=== PATIENT | female | born 1985 | race African-American/Black ===

== ENCOUNTER 2023-08-06 19:35 | Emergency (ER) | payer OTHER, SELFPAY ==
[2023-08-06 19:45] VITALS: BP 141/88
[2023-08-06 20:36] LABS: Hematocrit 21.8 % (37.0-47.0); Hemoglobin 5.6 g/dL (12.0-16.0); Mean Corp Hgb Conc. 25.7 g/dL (33.0-37.0); Mean Corpuscular Hgb 16.3 pg (27.0-31.0); Mean Corpuscular Volume 63.6 fL (81.0-99.0); Mean Platelet Volume 9.5 fL (7.4-10.4); Platelet Count 458 10^3/uL (130-400); Red Blood Cell Count 3.43 10^6/uL (4.20-5.40); Red Cell Dist. Width 21.2 % (11.5-14.5); White Blood Cell Count 4.9 10^3/uL (4.8-10.8)
[2023-08-06 20:37] LABS: % Eosinophils 3.1 % (0-6); % Immature Granulocytes 0.2 % (0-0.5); % Lymphocytes 32.4 % (20.5-51.1); % Monocytes 7.6 % (1.7-9.3); % Neutrophils 55.7 % (42.2-75.2); Absolute Basophils 0.1 10^3/uL (0-0.2); Absolute Eosinophils 0.2 10^3/uL (0-0.7); Absolute Lymphocytes 1.6 10^3/uL (1.2-3.4); Absolute Monocytes 0.4 10^3/uL (0.1-0.6); Absolute Neutrophils 2.7 10^3/uL (1.4-6.5); Anisocytosis 1+; Hypochromasia 3+; Microcytosis 2+; Normal RBC Morphology No
[2023-08-06 20:47] LABS: ALT (SGPT) < 10 U/L (0-35); AST (SGOT) 14 U/L (14-36); Albumin 4.2 g/dl (3.5-5.0); Alkaline Phosphatase 49 U/L (38-126); Blood Urea Nitrogen 11 mg/dl (7-17); Calcium 8.7 mg/dl (8.4-10.2); Carbon Dioxide 20 mmol/L (22-30); Chloride 105 mmol/L (98-107); Glucose 94 mg/dl (70-99); Potassium 3.8 mmol/L (3.5-5.1); Sodium 137 mmol/L (135-145); Total Bilirubin 0.5 mg/dl (0.2-1.3); Total Protein 7.3 g/dl (6.3-8.2); eGFR > 60.00
[2023-08-06 20:59] LABS: HCG, Serum Qualitative Screen Negative
[2023-08-06 21:01] LABS: Lipase 63 U/L (23-300)
--- NOTE | 2023-08-06 21:28 | ED.GENMED ---
History of Present Illness
General
Chief Complaint: Abdominal Symptoms
Source: patient
Exam Limitations: none
Time Seen by Provider: 08/06/23 21:12
Travel History
Have you had any contact with someone who has COVID-19?: No
Do you have any symptoms of coronavirus? Fever > 100 degrees, chills, cough, shortness of breath, sore throat, loss of taste or smell, muscle aches, or headache?: No
History of Present Illness
History of Present Illness:
See MDM
Past History
Past History
ED Past Medical History: Other (Uterine fibroid)
ED Past Surgical History: None
Social History
Tobacco: Non-smoker
Alcohol: None
Phy Exam
Physical Exam
Physical Exam:
See MDM
Course
Orders/Labs/Results
Orders:
Orders
08/06/23 19:56
Type+Screen Urgent
Complete Blood Count/With Diff Urgent
Comprehensive Metabolic Panel Urgent
HCG, Serum Qualitative Screen Urgent
Comment: ADD ON
Lipase Urgent
08/06/23 20:48
Add On- LAB Urgent
Tests Added?: qualatative HCG
08/06/23 21:21
Blood Bank Products [* Blood Bank Products] Urgent
's Orders: Doug Santizo DO
Blood Bank Products: *Packed RBC Leuko(PRBC's)
Quantity: 2
Transfuse Today: Yes
Reason: Anemia
Abnormal Lab Results
08/06/23
19:56
RBC 3.43 L 10^6/uL
(4.20-5.40)
Hgb 5.6 L* g/dL
(12.0-16.0)
Hct 21.8 L %
(37.0-47.0)
MCV 63.6 L fL
(81.0-99.0)
MCH 16.3 L pg
(27.0-31.0)
MCHC 25.7 L g/dL
(33.0-37.0)
RDW 21.2 H %
(11.5-14.5)
Plt Count 458 H 10^3/uL
(130-400)
Carbon Dioxide 20 L mmol/L
(22-30)
08/06/23 19:56
08/06/23 19:56
Vital Signs
Initial and Last Documented VS:
Initial Vital Signs
Temp Pulse Resp BP Pulse Ox
98.2 F 90 20 141/88 99
08/06/23 19:45 08/06/23 19:45 08/06/23 19:45 08/06/23 19:45 08/06/23 19:45
Last Documented Vital Signs
Temp Pulse Resp BP Pulse Ox
98.2 F 90 20 141/88 99
08/06/23 19:45 08/06/23 19:45 08/06/23 19:45 08/06/23 19:45 08/06/23 19:45
MDM/Problems Addressed
Differential Diagnosis Includes:
HPI and MDM Narrative:
38-year-old female presenting with concern for anemia. Patient has known uterine fibroids. She has followed up with PERIODONTAL ASSISTANT in the past and has required a blood transfusion in the past. Patient states she is compliant with supplemental iron. She
states that she has approximately 5 days menstrual bleeding but only 2 of them are heavy. Currently, she denies any significant bleeding but states she feels weak and fatigued. She is concerned she needs another blood transfusion
On exam, she is mildly pale but appears comfortable. She is a soft and nontender abdomen. We discussed that her hemoglobin is 5.6. Patient has been evaluated for a hysterectomy but she is still planning on having children. She has been on Lupron
before but wants to speak to her media/instructional designer about restarting this. Her and her media/instructional designer are trying to obtain outpatient MRI to further evaluate her uterus
Physical exam
General: Well appearing and non-toxic
HEENT: protecting airway
Neck: appears supple
CV: No evidence of cyanosis
Resp: No accessory muscle use
Abd: Non-distended. Soft and nontender
Extremities: No deformities
Neuro: alert
Psych: Normal affect
Skin: Pale
Problems Addressed including Acute and Chronic Conditions affecting care:
1. Symptomatic anemia
Acuity: acute
Prognosis: unstable
Details: Patient tented for 2 units of blood. We discussed the importance of continuing her iron. She will talk to her PERIODONTAL ASSISTANT about Lupron and obtaining outpatient MRI
Differential Diagnosis (but not limited to): Symptomatic anemia, vaginal bleeding, fibroids
Testing considered: I offered pelvic ultrasound but patient
Drug therapy (if applicable): OTC meds, please see d/c instruction regarding Rx drugs
Amount and/or Complexity of Data Reviewed
Clinical info obtained from: Patient
External data reviewed: N/A
Labs I independently reviewed (but not limited to): Hemoglobin 5.6
Radiology: N/A
Pulse Ox: not hypoxic
EKG independently reviewed: N/A
International Relations Teacher: N/A
Critical Care: N/A
Risk of Complication:
Social Determinants of health: Good social support
Discussed with other providers: N/A
Escalation of Care includes Admit/Obs: After being observed in the Emergency Department, pt stable for discharge.
Occasional wrong word or 'sound a like' substitutions may have occurred due to the inherent limitations of voice recognition software. Read the chart carefully and recognize, using context, where substitutions have occurred.
*Critical Care Note
Total Time (30-74mins, 75-104mins- exclusive of procedures): Not Applicable
ED Attending Note
-
Portions of this chart may have been created with voice recognition software.� Occasional wrong word or��sound alike� substitutions may have occurred due to the inherent limitations of voice recognition software.
Discharge Plan
Departure
Patient Disposition: Home (Routine Discharge)
Date of Disposition: 08/06/23
Time of Disposition: 21:35
Patient with high blood pressure during this ER visit?: Yes
Discharge Problem:
Symptomatic anemia
Instructions: Uterine Fibroids (DC), BLOOD PRESSURE
Activity Restrictions/Additional Instructions:
As we discussed, please follow-up with your PERIODONTAL ASSISTANT to discuss restarting Lupron and obtaining the pelvic MRI. Please return for worsening symptoms. Continue your iron supplements.
Interventions
Interventions:
*Risk Screen - Suicide Last Done: 08/06/23 19:45
*General Assessment Last Done: 08/06/23 19:45
[2023-08-06 23:21] VITALS: BP 118/73
[2023-08-06 23:39] VITALS: BP 116/76
[2023-08-07 00:12] VITALS: BP 118/80
[2023-08-07 00:51] VITALS: BP 103/70
[2023-08-07 00:54] VITALS: BP 103/70
[2023-08-07 01:07] VITALS: BP 110/73
[2023-08-07 01:12] VITALS: BP 108/70
[2023-08-07 01:42] VITALS: BP 115/72
== END 2023-08-07 01:52 | disposition home or self-care (01) ==
LOC: EMR 19:35
PROVIDERS: EMERGENCY PHYSICIAN Student in an Organized Health Care Education/Training Program; FAMILY PHYSICIAN Nurse Practitioner Adult Health
DX: D64.9 Anemia, unspecified (principal)
CPT/HCPCS: 99283; 36430; 80053; 83690; 84703; 85025; 86850; 86900; 86901; 86920; P9016

== ENCOUNTER 2024-04-04 17:34 | Emergency (ER) | payer SELFPAY ==
[2024-04-04] VITALS (10 sets, daily range): BP systolic 113–137; BP diastolic 64–100
[2024-04-04 18:49] LABS: ALT (SGPT) 13 U/L (0-35); AST (SGOT) 18 U/L (14-36); Albumin 4.3 g/dl (3.5-5.0); Alkaline Phosphatase 32 U/L (38-126); Blood Urea Nitrogen 11 mg/dl (7-17); Calcium 9.2 mg/dl (8.4-10.2); Carbon Dioxide 22 mmol/L (22-30); Chloride 108 mmol/L (98-107); Glucose 98 mg/dl (70-99); Potassium 4.3 mmol/L (3.5-5.1); Sodium 142 mmol/L (135-145); Total Bilirubin 0.5 mg/dl (0.2-1.3); eGFR > 60.00
--- NOTE | 2024-04-04 19:02 | ED.GENMED ---
History of Present Illness
General
Chief Complaint: Dizziness
Source: patient
Exam Limitations: none
Time Seen by Provider: 04/04/24 18:44
Nursing documentation reviewed up to this point in time: agreed with
History of Present Illness
History of Present Illness:
The patient is a 38-year-old female with a past medical history of long menstrual periods and heavy vaginal bleeding, who reports that she thinks she might be anemic and needs blood. Patient reports she has been feeling lightheaded and has had some
intermittent chest pain or shortness of breath. Patient reports she feels this way when she needs blood. She denies cough and fever. She reports currently she has no chest pain. She denies any chest pain when taking a deep breath. She denies a
history of PE and DVT. Patient reports she is not currently having any bleeding. She reports she had 2 [id number] periods this past February when she bled for about 20 days straight. Additionally, she bled for 7 days, vaginally, this past
February. She reports she is due to have her menstrual period in a few days. Patient reports she has a history of uterine fibroids.
Past History
Past History
ED Past Medical History: Other (Uterine fibroid, chronic anemia)
ED Past Surgical History: None
Social History
Tobacco: Non-smoker
Alcohol: None
Drug: None
Living: with family
Employment: Other
Family History
Family History: Other
Review of Systems
Review of Systems
Allergies reviewed?: Yes
All Other Systems: ROS reviewed and negative except as documented in HPI and ROS
Constitutional: Reports fatigue
EENT: Reports no symptoms
Respiratory: Reports trouble breathing
Cardiac: Reports chest pain
ABD/GI: Reports no symptoms
: Reports no symptoms
Musculoskeletal: Reports no symptoms
Skin: Reports no symptoms
Neurological: Reports no symptoms
Endocrine: Reports no symptoms
Hematologic/Lymphatic: Reports no symptoms
Psychiatric: Reports no symptoms
Phy Exam
Physical Exam
Physical Exam:
Physical Exam
General: no apparent distress, not acutely ill
Neck: supple. no meningeal signs. normal psoterior pharynx
Heart: s1/s2 regular rate and rhythm, no murmur. equal radial pulses.
Lungs: no acute respiratory distress. clear bilaterally
Abdomen: normal bowel sounds. not tender. no CVAT
Neuro: alert and oriented. no focal neurological deficits
Skin: no rash
Psychiatric: well kept. interactive and cooperative
Extremities: no edema. no calf tenderness. negative homans. good distal pulses
Course
Orders/Labs/Results
Orders:
Orders
04/04/24 17:44
Electrocardiogram (*1) Urgent
Reason for Study: Palpitations
EKG- Treatment ONCE
04/04/24 18:18
Complete Blood Count/With Diff Urgent
Comprehensive Metabolic Panel Urgent
04/04/24 19:17
* Blood Bank Products Urgent
'heidi Orders: lamont
Blood Bank Products: *Packed RBC Leuko(PRBC's)
Quantity: 2
Transfuse Today: Yes
Is product needed for scheduled surgery?: No
Reason: Anemia
Patient will require pre-treatment for transfusion:: No
IV Insert/Care/Rem.- Treatment PRN
04/04/24 19:20
Type And Crossmatch Urgent
Troponin I Urgent
Abnormal Lab Results
04/04/24
18:18
RBC 3.68 L 10^6/uL
(4.20-5.40)
Hgb 7.4 L g/dL
(12.0-16.0)
Hct 26.5 L %
(37.0-47.0)
MCV 72.0 L fL
(81.0-99.0)
MCH 20.1 L pg
(27.0-31.0)
MCHC 27.9 L g/dL
(33.0-37.0)
RDW 18.9 H %
(11.5-14.5)
MPV 10.6 H fL
(7.4-10.4)
Absolute Lymphs (auto) 1.1 L 10^3/uL
(1.2-3.4)
Chloride 108 H mmol/L
(98-107)
Alkaline Phosphatase 32 L U/L
(38-126)
04/04/24 18:18
04/04/24 18:18
Vital Signs
Initial and Last Documented VS:
Initial Vital Signs
Temp Pulse Resp BP Pulse Ox
98.8 F 91 20 137/100 100
04/04/24 17:37 04/04/24 17:37 04/04/24 17:37 04/04/24 17:37 04/04/24 17:37
Last Documented Vital Signs
Temp Pulse Resp BP Pulse Ox
98.8 F 89 21 129/82 100
04/04/24 17:37 04/04/24 18:30 04/04/24 18:30 04/04/24 18:28 04/04/24 18:30
MDM/Problems Addressed
Differential Diagnosis Includes:
Acute on chronic anemia, acute blood loss, acute coronary syndrome, hyponatremia
MDM/Problems Addressed:
Patient presents with acute fatigue, chest pain or shortness of breath
Chronic conditions affecting care:
Chronic anemia and fibroids
Acute Exacerbation and/or Progression of Chronic Illness:
Anemia
*Pulse Oximetry
Patient hypoxic: no
*EKG
Interpreted by ED Provider?: Yes
Interpretation: abnormal
Comparison EKG: no comparison EKG present
Rate: normal
Rhythm: sinus
Phillips: normal axis
Interval: normal interval
QRS Pattern: normal QRS
Ischemia: non-specific ST changes
*Channel Program Manager Interpretation
Rate: normal
Interpretation: normal
Rhythm: sinus
*Critical Care Note
Total Time (30-74mins, 75-104mins- exclusive of procedures): Not Applicable
Data Reviewed
Review of Other/Old Records Reveals: Labs (Last hemoglobin was 5.6 in July 2023)
Source: patient
Patient Management
Social determinants of health affecting care: Living situation and Strong social support
Update Note
Update Note:
Patient appears well and comfortable. It is unlikely she has a PE given she has no pleuritic chest pain and currently has absolutely no chest pain.
Patient gave written consent for blood transfusion and understands risks and benefits. Patient denies any vaginal bleeding at this time.
ED Attending Note
-
Portions of this chart may have been created with voice recognition software.� Occasional wrong word or��sound alike� substitutions may have occurred due to the inherent limitations of voice recognition software.
Discharge Plan
Departure
Referrals:
NONE,* [Family Provider] -
Interventions
Interventions:
*Risk Screen - Suicide Last Done: 04/04/24 18:29
*General Assessment Last Done: 04/04/24 18:29
*Neglect/Abuse Screening Last Done: 04/04/24 18:29
*ED COVID-19 Vaccine History Last Done: 04/04/24 18:29
ED- Cardiac Assessment Last Done: 04/04/24 18:27
Discharge Date and Time
Print Language: URUGUAYAN
[2024-04-04 19:04] LABS: Hematocrit 26.5 % (37.0-47.0); Hemoglobin 7.4 g/dL (12.0-16.0); Mean Corp Hgb Conc. 27.9 g/dL (33.0-37.0); Mean Corpuscular Hgb 20.1 pg (27.0-31.0); Mean Platelet Volume 10.6 fL (7.4-10.4); Platelet Count 356 10^3/uL (130-400); Red Blood Cell Count 3.68 10^6/uL (4.20-5.40); Red Cell Dist. Width 18.9 % (11.5-14.5); White Blood Cell Count 4.9 10^3/uL (4.8-10.8)
[2024-04-04 19:09] LABS: % Basophils 0.8 % (0-2); % Eosinophils 3.1 % (0-6); % Immature Granulocytes 0.4 % (0-0.5); % Monocytes 8.4 % (1.7-9.3); % Neutrophils 64.3 % (42.2-75.2); Absolute Eosinophils 0.2 10^3/uL (0-0.7); Absolute Lymphocytes 1.1 10^3/uL (1.2-3.4); Absolute Monocytes 0.4 10^3/uL (0.1-0.6); Absolute Neutrophils 3.2 10^3/uL (1.4-6.5); Nucleated Red Blood Cells % 0 %
[2024-04-04 19:10] LABS: Anisocytosis 2+; Hypochromasia 3+; Macrocytosis 2+; Normal RBC Morphology No; Ovalocytes 1+; Polychromasia 1+; Stomatocytes 1+; Tear Drop Red Blood Cells 1+
[2024-04-04 20:00] LABS: Troponin I < 0.012 ng/ml
--- NOTE | 2024-04-04 20:04 | ED.GENMED ---
History of Present Illness
General
Chief Complaint: Dizziness
Source: patient
Exam Limitations: none
Time Seen by Provider: 04/04/24 18:44
Nursing documentation reviewed up to this point in time: agreed with
History of Present Illness
History of Present Illness:
See chart from same day visit
Past History
Past History
ED Past Medical History: Other (Uterine fibroid, chronic anemia)
ED Past Surgical History: None
Social History
Tobacco: Non-smoker
Alcohol: None
Drug: None
Living: with family
Employment: Other
Family History
Family History: Other
Review of Systems
Review of Systems
Allergies reviewed?: Yes
All Other Systems: Not applicable
Constitutional: Reports fatigue
EENT: Reports no symptoms
Respiratory: Reports trouble breathing
Cardiac: Reports chest pain
ABD/GI: Reports no symptoms
: Reports no symptoms
Musculoskeletal: Reports no symptoms
Skin: Reports no symptoms
Neurological: Reports no symptoms
Endocrine: Reports no symptoms
Hematologic/Lymphatic: Reports no symptoms
Psychiatric: Reports no symptoms
Phy Exam
Physical Exam
Physical Exam:
..
Course
Orders/Labs/Results
Orders:
Orders
04/04/24 17:44
Electrocardiogram (*1) Urgent
Reason for Study: Palpitations
EKG- Treatment ONCE
04/04/24 18:18
Complete Blood Count/With Diff Urgent
Comprehensive Metabolic Panel Urgent
04/04/24 19:17
* Blood Bank Products Urgent
Shine Orders: lmaont
Blood Bank Products: *Packed RBC Leuko(PRBC's)
Quantity: 2
Transfuse Today: Yes
Is product needed for scheduled surgery?: No
Reason: Anemia
Patient will require pre-treatment for transfusion:: No
IV Insert/Care/Rem.- Treatment PRN
04/04/24 19:20
Type And Crossmatch Urgent
Troponin I Urgent
Abnormal Lab Results
04/04/24 04/04/24
18:18 19:20
RBC 3.68 L 10^6/uL
(4.20-5.40)
Hgb 7.4 L g/dL
(12.0-16.0)
Hct 26.5 L %
(37.0-47.0)
MCV 72.0 L fL
(81.0-99.0)
MCH 20.1 L pg
(27.0-31.0)
MCHC 27.9 L g/dL
(33.0-37.0)
RDW 18.9 H %
(11.5-14.5)
MPV 10.6 H fL
(7.4-10.4)
Absolute Lymphs (auto) 1.1 L 10^3/uL
(1.2-3.4)
Chloride 108 H mmol/L
(98-107)
Alkaline Phosphatase 32 L U/L
(38-126)
Crossmatch IS Only See Detail
04/04/24 18:18
04/04/24 18:18
Vital Signs
Initial and Last Documented VS:
Initial Vital Signs
Temp Pulse Resp BP Pulse Ox
98.8 F 91 20 137/100 100
04/04/24 17:37 04/04/24 17:37 04/04/24 17:37 04/04/24 17:37 04/04/24 17:37
Last Documented Vital Signs
Temp Pulse Resp BP Pulse Ox
98.2 F 71 21 117/77 100
04/04/24 21:59 04/04/24 21:59 04/04/24 21:59 04/04/24 21:59 04/04/24 21:59
*Critical Care Note
Total Time (30-74mins, 75-104mins- exclusive of procedures): Not Applicable
Patient Management
Social determinants of health affecting care: Living situation and Strong social support
ED Attending Note
-
Portions of this chart may have been created with voice recognition software.� Occasional wrong word or��sound alike� substitutions may have occurred due to the inherent limitations of voice recognition software.
Discharge Plan
Departure
Patient Disposition: Home (Routine Discharge)
Date of Disposition: 04/04/24
Time of Disposition: 22:32
Patient with high blood pressure during this ER visit?: Yes
Condition: Good
Covid-19: Not Applicable
Discharge Problem:
Signs and symptoms of anemia
Instructions: Anemia, Possibly From Low Iron, Adult ED, BLOOD PRESSURE
Referrals:
NONE,* [Family Provider] -
Interventions
Interventions:
*Risk Screen - Suicide Last Done: 04/04/24 18:29
*General Assessment Last Done: 04/04/24 18:29
*Neglect/Abuse Screening Last Done: 04/04/24 18:29
ED- Fall Risk Assessment Last Done: 04/04/24 21:54
*ED COVID-19 Vaccine History Last Done: 04/04/24 18:29
ED- Cardiac Assessment Last Done: 04/04/24 18:27
Discharge Date and Time
Print Language: LIBERIAN
== END 2024-04-04 23:00 | disposition home or self-care (01) ==
LOC: EMR 17:34
PROVIDERS: EMERGENCY PHYSICIAN Emergency Medicine
DX: D64.9 Anemia, unspecified (principal); D25.9 Leiomyoma of uterus, unspecified
CPT/HCPCS: 99284; 80053; 84484; 85025; 86850; 86900; 86901; 86920; 93005; P9016

== ENCOUNTER 2024-06-07 21:43 | Emergency (ER) | payer SELFPAY ==
[2024-06-07 21:44] VITALS: BP 126/77
[2024-06-07 22:38] LABS: Urine Albumin Negative (Neg - Trace); Urine Bilirubin Negative (Negative); Urine Character Clear (Clear); Urine Color Yellow; Urine Glucose Negative (Negative); Urine Ketone Negative (Negative); Urine Leukocyte Negative (Negative); Urine Nitrite Negative (Negative); Urine Occult Blood Negative (Negative); Urine Urobilinogen 1+ (Neg - 1+)
[2024-06-07 22:41] LABS: % Basophils 1.5 % (0-2); % Eosinophils 3.5 % (0-6); % Immature Granulocytes 0.2 % (0-0.5); % Lymphocytes 30.2 % (20.5-51.1); % Monocytes 7.9 % (1.7-9.3); % Neutrophils 56.7 % (42.2-75.2); Absolute Basophils 0.1 10^3/uL (0-0.2); Absolute Eosinophils 0.1 10^3/uL (0-0.7); Absolute Lymphocytes 1.2 10^3/uL (1.2-3.4); Absolute Monocytes 0.3 10^3/uL (0.1-0.6); Absolute Neutrophils 2.3 10^3/uL (1.4-6.5); Hemoglobin 8.4 g/dL (12.0-16.0); Mean Corpuscular Hgb 21.5 pg (27.0-31.0); Mean Corpuscular Volume 76.9 fL (81.0-99.0); Mean Platelet Volume 10.5 fL (7.4-10.4); Nucleated Red Blood Cells % 0 %; Platelet Count 398 10^3/uL (130-400); Red Cell Dist. Width 20.6 % (11.5-14.5)
[2024-06-07 22:46] LABS: HCG, Serum Qualitative Screen Negative
[2024-06-07 22:48] LABS: ALT (SGPT) 13 U/L (0-35); AST (SGOT) 19 U/L (14-36); Albumin 4.3 g/dl (3.5-5.0); Alkaline Phosphatase 44 U/L (38-126); Blood Urea Nitrogen 10 mg/dl (7-17); Calcium 9.1 mg/dl (8.4-10.2); Carbon Dioxide 27 mmol/L (22-30); Chloride 102 mmol/L (98-107); Glucose 93 mg/dl (70-99); Potassium 3.9 mmol/L (3.5-5.1); Sodium 138 mmol/L (135-145); Total Bilirubin 0.5 mg/dl (0.2-1.3); Total Protein 7.2 g/dl (6.3-8.2); eGFR > 60.00
[2024-06-07 22:56] LABS: Anisocytosis 2+; Microcytosis 1+; Normal RBC Morphology No
[2024-06-07 22:57] LABS: Hypochromasia 2+; Macrocytosis 1+
[2024-06-07 22:58] LABS: Polychromasia 1+
[2024-06-07 23:00] LABS: Ovalocytes 1+
[2024-06-07 23:02] LABS: Target Cells Occasional
[2024-06-07 23:03] LABS: Stomatocytes Slight
--- NOTE | 2024-06-08 02:01 | ED.GENMED ---
History of Present Illness
General
Chief Complaint: Urinary Symptoms
Source: patient
Exam Limitations: none
Time Seen by Provider: 06/08/24 01:20
History of Present Illness
History of Present Illness:
This is a 38 year old female that comes in with c/o low back pain bilateral. States that she thought she may have a kidney infection. States that she started yesterday with pain. States that she does have arthritis in the back. denies any fever,
chills, chest pain, SOB, abd pain, nausea, vomiting, diarrhea, headache, dizziness, urinary burning
Past History
Past History
ED Past Medical History: Other (Uterine fibroid, chronic anemia)
ED Past Surgical History: Orthopedic (Knee surgery X 2, Shoulder surgery)
Social History
Tobacco: Former smoker
Alcohol: None
Drug: None and Marijuana
Personal: Single
Living: with family
Employment: Other
Family History
Family History: Other
Review of Systems
Review of Systems
All Other Systems: ROS reviewed and negative except as documented in HPI and ROS
Constitutional: Reports no symptoms; Denies fever or chills
EENT: Reports no symptoms
Respiratory: Reports no symptoms; Denies cough or trouble breathing
Cardiac: Reports no symptoms; Denies chest pain
ABD/GI: Reports no symptoms; Denies abdominal pain, nausea, vomiting or diarrhea
: Denies dysuria, frequency or urgency
Musculoskeletal: Reports back pain (Bilateral low back pain)
Skin: Reports no symptoms
Neurological: Reports no symptoms; Denies dizzy or headache
Psychiatric: Reports no symptoms
Phy Exam
General Physical Exam
General Presentation: well appearing and no apparent distress
General age: appears stated age
General Skin: warm and dry
General Habitus: normal
General Mental: alert
General Hydration: appears well hydrated
ENT Exam
ENT Exam: TM's normal, pharynx normal and neck supple
Eye Exam
Eye Exam: EOMI
Cardiovascular Exam
Cardiovascular Exam: regular rate/rhythm, no edema, no murmur and normal peripheral pulses
Pulmonary Exam
Pulmonary Exam: lungs clear, no respiratory distress, no rales, chest non tender, no crackles, no rhonchi, no wheezing and no cough
Gastrointestinal Exam
Gastrointestinal Exam: normal bowel sounds, non tender, soft, no organomegaly, no pulsatile mass and non distended
Musculoskeletal Exam
Musculoskeletal Exam: full ROM, no edema and other (Negative for any spinal tenderness or tenderness lateral to the spine. Negative discomfort with straight leg raise, going up on her toes, Turning side to side. slightly when bending forward 45
degree's. )
Skin Exam
Skin Exam: normal color, warm/dry, no rash and no petechia
Psychiatric Exam
Psychiatric Exam: normal mood/affect
Course
Orders/Labs/Results
Orders:
Orders
06/07/24 21:49
Test Result ONCE
06/07/24 21:59
CMP [Comprehensive Metabolic Panel] Urgent
Complete Blood Count/With Diff Urgent
HCG, Serum Qualitative Screen Urgent
Urinalysis Reflex To Culture Urgent
Date Specimen was Collected: 06/07/24
Time Specimen was Collected: 21:48
Abnormal Lab Results
06/07/24
21:59
WBC 4.0 L 10^3/uL
(4.8-10.8)
RBC 3.90 L 10^6/uL
(4.20-5.40)
Hgb 8.4 L g/dL
(12.0-16.0)
Hct 30.0 L %
(37.0-47.0)
MCV 76.9 L fL
(81.0-99.0)
MCH 21.5 L pg
(27.0-31.0)
MCHC 28.0 L g/dL
(33.0-37.0)
RDW 20.6 H %
(11.5-14.5)
MPV 10.5 H fL
(7.4-10.4)
06/07/24 21:59
06/07/24 21:59
Leukopenia, H/H low, Anemia, Urine negative for infection. HCG negative.
Vital Signs
Initial and Last Documented VS:
Initial Vital Signs
Temp Pulse Resp BP Pulse Ox
98.7 F 79 18 126/77 100
06/07/24 21:44 06/07/24 21:44 06/07/24 21:44 06/07/24 21:44 06/07/24 21:44
Last Documented Vital Signs
Temp Pulse Resp BP Pulse Ox
98.7 F 75 16 126/77 99
06/07/24 21:44 06/08/24 01:58 06/08/24 01:58 06/07/24 21:44 06/08/24 01:58
MDM/Problems Addressed
Differential Diagnosis Includes:
Low back pain. Renal calculus, Urinary tract infection
MDM/Problems Addressed:
This is a 38 year old female that comes in with c/o bilateral low back pain. States that she thought she had a UTI or kidney infection.
Will get labs and Urine. Explained to patient that her Blood work shows her anemia and that her urine is negative for infection. This may be due to her chronic arthritis in her back. If this continued patient can follow up with the Orthopedic
specialist. Encouraged patient to try Tylenol 1000mg every 6 hours for pain. Return with any concerns.
Chronic conditions affecting care:
Arthitis in the back.
Acute Exacerbation and/or Progression of Chronic Illness:
Arthritis of back
*Pulse Oximetry
Patient hypoxic: no
*EKG
Interpreted by ED Provider?: NA
Rate: EKG- N/A
*Instrument And Control Service Person Interpretation
Rate: Instrument And Control Service Person- N/A
*Critical Care Note
Total Time (30-74mins, 75-104mins- exclusive of procedures): Not Applicable
ED Attending Note
-
Portions of this chart may have been created with voice recognition software.� Occasional wrong word or��sound alike� substitutions may have occurred due to the inherent limitations of voice recognition software.
Discharge Plan
Departure
Patient Disposition: Home (Routine Discharge)
Date of Disposition: 06/08/24
Time of Disposition: 02:08
Patient with high blood pressure during this ER visit?: No
Condition: Good
Covid-19: Not Applicable
Discharge Problem:
Low back pain
Instructions: Low back pain - ED discharge instructions
Referrals:
Bairon Valenzuela MD [Active] - As needed
Activity Restrictions/Additional Instructions:
As discussed, your blood work shows your anemia. Your urine is negative for infection. This may be caused by your arthritis in the back. Please try using Tylenol 1000mg every 6 hours for pain. You can also try an over the counter Lidoderm patch.
Follow up with an verification specialist for further evaluation if the pain continues. IF YOU HAVE ANY OTHER CONCERNS PLEASE RETURN TO THE EMERGENCY ROOM.
Interventions
Interventions:
*Risk Screen - Suicide Last Done: 06/07/24 21:48
*General Assessment Last Done: 06/08/24 01:52
*Neglect/Abuse Screening Last Done: 06/07/24 21:48
ED- Fall Risk Assessment Last Done: 06/08/24 01:52
*ED COVID-19 Vaccine History Last Done: 06/07/24 21:48
ED-Female Genitourinary Assessment Last Done: 06/08/24 01:52
Discharge Date and Time
Print Language: H[place] KONG[place]
== END 2024-06-08 02:15 | disposition home or self-care (01) ==
LOC: EMR 21:43
PROVIDERS: Emergency Medicine; EMERGENCY PHYSICIAN Emergency Medicine
DX: M54.50 Low back pain, unspecified (principal); D64.9 Anemia, unspecified; Z87.891 Personal history of nicotine dependence
CPT/HCPCS: 99283; 80053; 81003; 84703; 85025

== ENCOUNTER 2024-06-25 16:41 | Emergency (ER) | payer SELFPAY ==
[2024-06-25 16:50] VITALS: BP 139/90
[2024-06-25 18:40] LABS: Urine Albumin 1+ (Neg - Trace); Urine Bilirubin Negative (Negative); Urine Character Clear (Clear); Urine Color Yellow; Urine Glucose Negative (Negative); Urine Ketone Negative (Negative); Urine Leukocyte 1+ (Negative); Urine Nitrite Negative (Negative); Urine Occult Blood Negative (Negative); Urine Specific Gravity 1.025 (<1.030); Urine Urobilinogen Negative (Neg - 1+)
[2024-06-25 18:44] LABS: HCG, Urine Qualitative Screen Negative
[2024-06-25 18:47] LABS: Urine Mucus Many; Urine Squamous Cell >30 /LPF (Few)
[2024-06-25 18:48] LABS: Urine Bacteria Many (Negative); Urine Red Blood Cell 0-2 /HPF (0-2)
[2024-06-25 22:05] LABS: Urine Albumin 2+ (Neg - Trace); Urine Bilirubin Negative (Negative); Urine Character Clear (Clear); Urine Color Yellow; Urine Glucose Negative (Negative); Urine Ketone Negative (Negative); Urine Leukocyte 1+ (Negative); Urine Nitrite Negative (Negative); Urine Occult Blood Negative (Negative); Urine Specific Gravity 1.025 (<1.030); Urine Urobilinogen 1+ (Neg - 1+)
[2024-06-25 22:26] LABS: Urine Squamous Cell 21-25 /LPF (Few)
[2024-06-25 22:27] LABS: Urine Red Blood Cell 0-2 /HPF (0-2)
[2024-06-25 22:29] LABS: Urine White Cell 0-2 /HPF (0-5)
[2024-06-25 22:35] VITALS: BP 116/77
--- NOTE | 2024-06-25 23:22 | ED.GENMED ---
History of Present Illness
General
Chief Complaint: Urinary Symptoms
Source: patient
Exam Limitations: none
Time Seen by Provider: 06/25/24 21:41
Nursing documentation reviewed up to this point in time: agreed with
History of Present Illness
History of Present Illness:
Patient to ED with complaint of burning wth urination x 2 days. Denies fever/chills. Denies n/v/d. Denies any vaginal discharge. Brought self to ED for eval
Past History
Past History
ED Past Medical History: Other (Uterine fibroid, chronic anemia)
ED Past Surgical History: Orthopedic (Knee surgery X 2, Shoulder surgery)
Social History
Tobacco: Former smoker
Alcohol: None
Drug: None and Marijuana
Personal: Single
Living: with family
Employment: Other
Family History
Family History: Other
Review of Systems
Review of Systems
Allergies reviewed?: Yes
All Other Systems: ROS reviewed and negative except as documented in HPI and ROS
Constitutional: Reports no symptoms
EENT: Reports no symptoms
Respiratory: Reports no symptoms
Cardiac: Reports no symptoms
ABD/GI: Reports no symptoms
: Reports dysuria
Musculoskeletal: Reports no symptoms
Skin: Reports no symptoms
Neurological: Reports no symptoms
Psychiatric: Reports no symptoms
Phy Exam
General Physical Exam
General Presentation: well appearing and no apparent distress
General age: appears stated age
General Skin: warm and dry
General Habitus: normal
General Mental: alert
General Hydration: appears well hydrated
Gastrointestinal Exam
Gastrointestinal Exam: non tender, soft, no organomegaly, no pulsatile mass, non distended and no cva tenderness
Musculoskeletal Exam
Musculoskeletal Exam: full ROM
Skin Exam
Skin Exam: normal color, warm/dry and no rash
Psychiatric Exam
Psychiatric Exam: normal mood/affect
Course
Orders/Labs/Results
Orders:
Orders
06/25/24 16:55
Test Result ONCE
06/25/24 18:28
HCG, Urine Qualitative Screen Urgent
Date Specimen was Collected: 06/25/24
Time Specimen was Collected: 16:55
Urinalysis Reflex To Culture Urgent
Date Specimen was Collected: 06/25/24
Time Specimen was Collected: 16:55
Urine Microscopic Reflex Cult Urgent
Urine Culture Urgent
BOBBI Source: U
Specimen Description:
Date Specimen was Collected: 06/25/24
Time Specimen was Collected: 16:55
06/25/24 21:54
Urinalysis Urgent
Date Specimen was Collected: 06/25/24
Time Specimen was Collected: 21:54
Urine Microscopic Urgent
Date Specimen was Collected: 06/25/24
Time Specimen was Collected: 21:54
Abnormal Lab Results
06/25/24 06/25/24
18:28 21:54
Ur Leukocyte Esterase 1+ A
(Negative)
Leukocyte Esterase Rfl 1+ A
(Negative)
Urine WBC (Reflex) 11-15 A /HPF
(0-5)
Urine Bacteria (Reflex) Many A
(Negative)
Urine Albumin 2+ A
(Neg - Trace)
Urine Albumin (Reflex) 1+ A
(Neg - Trace)
Vital Signs
Initial and Last Documented VS:
Initial Vital Signs
Temp Pulse Resp BP Pulse Ox
98.6 F 96 16 139/90 97
06/25/24 16:50 06/25/24 16:50 06/25/24 16:50 06/25/24 16:50 06/25/24 16:50
Last Documented Vital Signs
Temp Pulse Resp BP Pulse Ox
98.2 F 74 16 116/77 98
06/25/24 22:35 06/25/24 22:35 06/25/24 22:35 06/25/24 22:35 06/25/24 22:35
*Critical Care Note
Total Time (30-74mins, 75-104mins- exclusive of procedures): Not Applicable
Update Note
Update Note:
Patient to ED with complaint of burning with urination. Initial UA results reflecting contaminated specimen. I asked her to repeat test and 2nd sample was clean, no evidence of UTI. Abdomen soft, nontender.. Afebrile. WIll discharge home.
Recommend increasing fluid intake. SHe will follow up with the clinic next week. Given instructions on s/s to return to ED and she is agreeable to plan.
ED Attending Note
-
Portions of this chart may have been created with voice recognition software.� Occasional wrong word or��sound alike� substitutions may have occurred due to the inherent limitations of voice recognition software.
Discharge Plan
Departure
Patient Disposition: Home (Routine Discharge)
Date of Disposition: 06/25/24
Time of Disposition: 22:33
Patient with high blood pressure during this ER visit?: No
Condition: Good
Covid-19: Not Applicable
Discharge Problem:
Burning with urination
Instructions: General
Activity Restrictions/Additional Instructions:
No evidence of infection was found tonight. Follow up at the outpatient clinic. Return to the emergency department immediately for fever/chills, increasing pain, vomiting, or for any further concerns.
Interventions
Interventions:
*Risk Screen - Suicide Last Done: 06/25/24 16:50
*General Assessment Last Done: 06/25/24 16:50
*Neglect/Abuse Screening Last Done: 06/25/24 16:50
ED- Fall Risk Assessment Last Done: 06/25/24 22:46
*ED COVID-19 Vaccine History Last Done: 06/25/24 16:50
*Nursing Disposition Last Done: 06/25/24 22:46
ED-Female Genitourinary Assessment Last Done: 06/25/24 22:36
Discharge Date and Time
Discharge Date/Time: 06/25/24 22:46
Print Language: MOROCCAN
== END 2024-06-25 22:46 | disposition home or self-care (01) ==
LOC: EMR 16:41
PROVIDERS: Emergency Medicine; Nurse Practitioner; EMERGENCY PHYSICIAN Student in an Organized Health Care Education/Training Program
DX: R30.9 Painful micturition, unspecified (principal); Z87.891 Personal history of nicotine dependence
CPT/HCPCS: 99283; 81003; 81015; 81025; 87086

== ENCOUNTER 2024-07-22 13:09 | Emergency (ER) | payer SELFPAY ==
[2024-07-22 13:14] VITALS: BP 153/87
[2024-07-22 13:36] LABS: % Basophils 0.6 % (0-2); % Eosinophils 2.7 % (0-6); % Immature Granulocytes 0.2 % (0-0.5); % Lymphocytes 17.6 % (20.5-51.1); % Monocytes 6.5 % (1.7-9.3); % Neutrophils 72.4 % (42.2-75.2); Absolute Eosinophils 0.2 10^3/uL (0-0.7); Absolute Lymphocytes 1.1 10^3/uL (1.2-3.4); Absolute Monocytes 0.4 10^3/uL (0.1-0.6); Absolute Neutrophils 4.6 10^3/uL (1.4-6.5); Hematocrit 31.2 % (37.0-47.0); Hemoglobin 8.5 g/dL (12.0-16.0); Mean Corp Hgb Conc. 27.2 g/dL (33.0-37.0); Mean Corpuscular Hgb 19.8 pg (27.0-31.0); Mean Corpuscular Volume 72.7 fL (81.0-99.0); Mean Platelet Volume 10.2 fL (7.4-10.4); Nucleated Red Blood Cells % 0 %; Platelet Count 371 10^3/uL (130-400); Red Blood Cell Count 4.29 10^6/uL (4.20-5.40); Red Cell Dist. Width 17.7 % (11.5-14.5); White Blood Cell Count 6.3 10^3/uL (4.8-10.8)
[2024-07-22 13:46] LABS: ALT (SGPT) 12 U/L (0-35); AST (SGOT) 14 U/L (14-36); Albumin 4.4 g/dl (3.5-5.0); Alkaline Phosphatase 45 U/L (38-126); Blood Urea Nitrogen 10 mg/dl (7-17); Calcium 9.4 mg/dl (8.4-10.2); Carbon Dioxide 22 mmol/L (22-30); Chloride 107 mmol/L (98-107); Glucose 116 mg/dl (70-99); Sodium 141 mmol/L (135-145); Total Bilirubin 0.5 mg/dl (0.2-1.3); Total Protein 7.4 g/dl (6.3-8.2); eGFR > 60.00
[2024-07-22 13:59] LABS: Anisocytosis 1+; Normal RBC Morphology No
[2024-07-22 14:00] LABS: Ovalocytes Slight
[2024-07-22 14:26] LABS: Ferritin 4.8 ng/ml (6.24-137)
--- NOTE | 2024-07-22 15:06 | ED.GENMED ---
History of Present Illness
<Sylvia Ornelas PA-C - Last Filed: 07/23/24 00:49>
General
Chief Complaint: Fatigue
Source: patient
Exam Limitations: none
Time Seen by Provider: 07/22/24 15:06
Nursing documentation reviewed up to this point in time: agreed with
History of Present Illness
History of Present Illness:
39-year-old female with past medical history of heavy menstrual periods, iron deficiency anemia, presents emergency department today with concerns of fatigue and dizziness. Patient reports that she has these symptoms chronically daily and states
that the past few weeks she feels like they are worse when she feels like she needs a blood transfusion. She denies any bleeding. Her last menstrual period was July 08. She takes liquid iron supplementally, she takes a tablespoon a day. She
denies any rectal bleeding or bloody stools. She denies any vomiting of blood. She denies any abdominal pain. She states that she gets exertional chest pain from time to time. She also notes chronic shortness of breath. She denies any
palpitations. She denies any vomiting, fevers.
Past History
<Sylvia Ornelas PA-C - Last Filed: 07/23/24 00:49>
Past History
ED Past Medical History: Other (Uterine fibroid, chronic anemia)
ED Past Surgical History: Orthopedic (Knee surgery X 2, Shoulder surgery)
Social History
Tobacco: Former smoker
Alcohol: None
Drug: None and Marijuana
Personal: Single
Living: with family
Employment: Other
Family History
Family History: Other
Review of Systems
<ELIZABETH Perez Last Filed: 07/23/24 00:49>
Review of Systems
All Other Systems: ROS reviewed and negative except as documented in HPI and ROS
Phy Exam
<Sylvia Ornelas PA-C - Last Filed: 07/23/24 00:49>
Physical Exam
Physical Exam:
General: Patient is well appearing and in no acute distress; non-toxic
Skin: Warm and dry, no rashes or lesions
Head: Normocephalic, atraumatic
Eyes: Sclera non-icteric. EOMs intact.
Cardiac: Regular rate and rhythm, no murmurs
Pulm: Normal respiratory effort, no wheezes, rales, or rhonchi
Neuro: CN II-XII intact, no focal neurologic deficits.
Psychiatric: Appropriate mood and affect.
Course
Miladlt;Sylvia Ornelas PA-C - Last Filed: 07/23/24 00:49>
Orders/Labs/Results
Orders:
Orders
07/22/24 13:20
Type+Screen Urgent
Complete Blood Count/With Diff Urgent
Comprehensive Metabolic Panel Urgent
Ferritin Urgent
07/22/24 15:20
Electrocardiogram (*1) Urgent
Reason for Study: Chest Pain
07/22/24 15:59
0.9% Sodium Chloride 500 ml [Nss] 500 ml IV BOLUS
07/22/24 16:30
Troponin I Urgent
Abnormal Lab Results
07/22/24
13:20
Hgb 8.5 L g/dL
(12.0-16.0)
Hct 31.2 L %
(37.0-47.0)
MCV 72.7 L fL
(81.0-99.0)
MCH 19.8 L pg
(27.0-31.0)
MCHC 27.2 L g/dL
(33.0-37.0)
RDW 17.7 H %
(11.5-14.5)
Absolute Lymphs (auto) 1.1 L 10^3/uL
(1.2-3.4)
Lymphocytes % 17.6 L %
(20.5-51.1)
Glucose 116 H mg/dl
(70-99)
Ferritin 4.8 L ng/ml
(6.24-137)
07/22/24 13:20
07/22/24 13:20
Vital Signs
Initial and Last Documented VS:
Initial Vital Signs
Temp Pulse Resp BP Pulse Ox
98.2 F 108 16 153/87 98
07/22/24 13:14 07/22/24 13:14 07/22/24 13:14 07/22/24 13:14 07/22/24 13:14
Last Documented Vital Signs
Temp Pulse Resp BP Pulse Ox
98.2 F 105 18 152/80 98
07/22/24 13:14 07/22/24 17:38 07/22/24 17:38 07/22/24 17:38 07/22/24 17:38
<Adrianna Brooks, DO - Last Filed: 07/22/24 16:19>
Orders/Labs/Results
Orders:
Orders
07/22/24 13:20
Type+Screen Urgent
Complete Blood Count/With Diff Urgent
Comprehensive Metabolic Panel Urgent
Ferritin Urgent
07/22/24 15:20
Electrocardiogram (*1) Urgent
Reason for Study: Chest Pain
07/22/24 15:59
0.9% Sodium Chloride 500 ml [Nss] 500 ml IV BOLUS
07/22/24 16:30
Troponin I Urgent
Abnormal Lab Results
07/22/24
13:20
Hgb 8.5 L g/dL
(12.0-16.0)
Hct 31.2 L %
(37.0-47.0)
MCV 72.7 L fL
(81.0-99.0)
MCH 19.8 L pg
(27.0-31.0)
MCHC 27.2 L g/dL
(33.0-37.0)
RDW 17.7 H %
(11.5-14.5)
Absolute Lymphs (auto) 1.1 L 10^3/uL
(1.2-3.4)
Lymphocytes % 17.6 L %
(20.5-51.1)
Glucose 116 H mg/dl
(70-99)
Ferritin 4.8 L ng/ml
(6.24-137)
07/22/24 13:20
07/22/24 13:20
Vital Signs
Initial and Last Documented VS:
Initial Vital Signs
Temp Pulse Resp BP Pulse Ox
98.2 F 108 16 153/87 98
07/22/24 13:14 07/22/24 13:14 07/22/24 13:14 07/22/24 13:14 07/22/24 13:14
Last Documented Vital Signs
Temp Pulse Resp BP Pulse Ox
98.2 F 105 18 152/80 98
07/22/24 13:14 07/22/24 17:38 07/22/24 17:38 07/22/24 17:38 07/22/24 17:38
Miladlt;Sylvia Ornelas PA-C - Last Filed: 07/23/24 00:49>
MDM/Problems Addressed
Differential Diagnosis Includes:
Symptomatic anemia, ACS, acute blood loss, hyponatremia
MDM/Problems Addressed:
39-year-old female with a history of iron deficiency anemia presents emergency department today with concerns of chronic dizziness, fatigue, and anemia. She also has intermittent exertional chest pain. Will check EKG and troponin and reassess.
Patient used to receive iron transfusions and blood transfusions in the past. In light of patient being stable, no active bleeding, hemoglobin of 8.5, no indication for blood transfusion at this time. Did speak with hematology in regards iron
transfusion, did recommend a dose of Venofer however it appears that this is medication is not available available in the ER. Give a dose of IV fluids, did provide follow-up with an [facility] to get repeat blood work.
Chronic conditions affecting care:
iron deficiency anemia
<Sylvia Ornelas PA-C - Last Filed: 07/23/24 00:49>
*Pulse Oximetry
Patient hypoxic: no
*Critical Care Note
Total Time (30-74mins, 75-104mins- exclusive of procedures): Not Applicable
Data Reviewed
Review of Other/Old Records Reveals: Records
ED Attending Note
<Sylvia Ornelas PA-C - Last Filed: 07/23/24 00:49>
-
Portions of this chart may have been created with voice recognition software.� Occasional wrong word or��sound alike� substitutions may have occurred due to the inherent limitations of voice recognition software.
<Adrianna Brooks DO - Last Filed: 07/22/24 16:19>
ED Attending Note
Patient seen and examined by attending physician: Yes
I performed the substantive portion of visit, reviewed & personally made and approve the management plan that is documented in note by myself or CARYL.: Yes
I performed a history and physical exam of patient and discussed management with resident, I reviewed resident's note and agree with documented findings and plan of care.: Yes
ED Attending Note:
39-year-old female with history of iron deficiency anemia presenting for chronic dizziness, shortness of breath, fatigue. Notes symptoms have been ongoing for more than a year, felt that they worsened in the past week. Also notes chest pain with
exertion. Also reports palpitations with exertion. Denies any known cardiac history. She is concerned that her iron and her hemoglobin are low. Denies any present bleeding, is not on her menstrual cycle. Patient recently lost her insurance, due
to loss of employment. Vital signs are significant for mild tachycardia.
On exam patient is resting comfortably, no acute distress or discomfort. Unremarkable cardiac and pulmonary exam. No clinical signs of dehydration. Patient had laboratory analysis prior to my assessment, hemoglobin is at her baseline. No
indication for transfusion. Patient's iron is low which could be contributing to symptoms. EKG is nonischemic, no present concern for ACS. Heart rate has normalized. No concern for PE at this time, no significant PE risk factors. At this time
again no emergent indication for iron transfusion or blood transfusion. Given hemodynamic stability, feel patient can appropriately be evaluated outpatient. Will provide information for the clinic. Return precautions discussed
Discharge Plan
Departure
Patient Disposition: Home (Routine Discharge)
Date of Disposition: 07/22/24
Time of Disposition: 17:28
Patient with high blood pressure during this ER visit?: Yes
Condition: Good
Discharge Problem:
Symptomatic anemia
Instructions: Anemia caused by low iron, BLOOD PRESSURE
Referrals:
[facility] [Provider Group] - Call in 1-3 days for appt
Debbie Menchaca DO [Active] - Call in 1-3 days for appt
Yoshi Mix MD [Active] -
NONE,* [Family Provider] -
Activity Restrictions/Additional Instructions:
Please continue your iron supplementation.
Please call the attached number for the [facility] residency clinic and [facility] to get repeat blood work done in a week.
I recommend following up with a speeder tender for further testing considering her exertional chest pain.
PLEASE RETURN EMERGENCY DEPARTMENT SHOULD YOU DEVELOP AN ACUTE WORSENING OF YOUR SYMPTOMS, FAINTING SPELLS, VAGINAL BLEEDING, RECTAL BLEEDING, DARK TARRY STOOLS, VOMITING BLOOD, FEVERS OR CHILLS, OR ANY OTHER SIGNS OR SYMPTOMS WORRISOME TO YOU
Interventions
Interventions:
*Risk Screen - Suicide Last Done: 07/22/24 13:14
*General Assessment Last Done: 07/22/24 14:57
*Neglect/Abuse Screening Last Done: 07/22/24 13:14
*ED COVID-19 Vaccine History Last Done: 07/22/24 14:57
*Nursing Disposition Last Done: 07/22/24 17:38
Discharge Date and Time
Discharge Date/Time: 07/22/24 17:42
Print Language: [place]
[2024-07-22] MEDS: NSS 500 IV (16:32)
[2024-07-22 17:12] LABS: Troponin I < 0.012 ng/ml
[2024-07-22 17:38] VITALS: BP 152/80
== END 2024-07-22 17:42 | disposition home or self-care (01) ==
LOC: EMR 13:09
PROVIDERS: Emergency Medicine; Physician Assistant; EMERGENCY PHYSICIAN Student in an Organized Health Care Education/Training Program
DX: D50.9 Iron deficiency anemia, unspecified (principal); R07.89 Other chest pain; Z87.891 Personal history of nicotine dependence
CPT/HCPCS: 96360; 99284; 80053; 82728; 84484; 85025; 86850; 86900; 86901; 93005